=== PATIENT | male | born 1975 | race Caucasian/White ===

== ENCOUNTER 2019-11-30 14:26 | Inpatient (IN) | payer MEDICARE, OTHER ==
[~2019-11-30] VITALS: Ht 172.7 cm; Wt 116.0 kg
[2019-11-30] MEDS ORDERED: DIAZEPAM10 MG PO (15:46)
[2019-11-30] MEDS ORDERED: ZYPREXA ZYDIS20 MG SL (15:48)
[2019-11-30] MEDS ORDERED: RISPERIDONE SL (15:49)
[2019-11-30] MEDS ORDERED: CYCL10 PO (15:49)
[2019-11-30] MEDS ORDERED: HYDHCL25 PO (15:50)
[2019-11-30] MEDS ORDERED: ATOR80 PO (15:50)
[2019-11-30] MEDS ORDERED: METF500 PO (15:52)
[2019-11-30] MEDS ORDERED: Synthroid200 MCG PO (15:52)
[2019-11-30] MEDS ORDERED: GLIM4 PO (15:52)
[2019-11-30] MEDS ORDERED: Prinivil10 MG PO (15:53)
[2019-11-30] MEDS ORDERED: PIOGLITAZONE HC15 MG PO (15:55)
[2019-11-30] MEDS ORDERED: Motion Sickness25 M1 PO (17:30)
[2019-11-30] MEDS ORDERED: Divalproex Sod500 MG PO (17:30)
[2019-11-30] MEDS ORDERED: Venlafaxine HC150 MG PO (17:31)
--- NOTE | 2019-11-30 18:55 | NUR ---
Echocardiogram completed.
--- NOTE | 2019-12-01 04:20 | NUR ---
SHIFT SUMMARY ASSUMED CARE OF PT AT 1900. PT IS A/OX4, DENIES N/T IN EXTREMITES. PT SPEECH IS SLOW AND HE STATES THAT HE HAS A HUGE HEADACHE. PT HAS L SIDED WEAKNESS. PUPILS ARE UNEQUAL BUT ARE REACTIVE. HEART SOUNDS REGULAR, TELE SHOWS SINUS @ 69, DENIES CP AT THIS TIME. LUNG SOUNDS DIMINISHED, PT C/O PAIN IN HIS R LUNG WHEN HE TAKES A DEEP BREATH. PT STATES THAT HE HASNT BEEN ABLE TO WALK VERY WELL SINCE THE INCIDENT, PT/OT CONSULT ORDERED FOR THE AM. PT CAN EAT VERY WELL AND SWOLLOWS PILLS WHOLE WITH WATER. PT WAS CONTINENT T/O THE NIGHT. PT C/O 9/10 HEADACHE AT THE BEGINNING OF THE SHIFT, MEDICATED WITH TYLENOL WITHOUT RELEIF. PT STATED THAT HE TOOK THIS AT HOME BUT IT STILL NEVER HELPED. HOSPIALIST CALLED AND ULTRAM WAS ORDERED, WHEN ABOUT TO ADMINISTER MEDICATION PT WAS ASLEEP. AROUND 0330 PT AWOKE STATING HIS HEAD STILL HURT ON THE L SIDE. MEDICATED WITH NEW MEDICATION AND PT HAS BEEN SLEEPING SINCE. CALL LIGHT IN REACH, BED IN LOWEST POSTION, WILL CONTINUE TO MONITOR UNTIL DAYSHIFT NURSE ARRIVES.
[2019-12-01 05:17] LABS: BASOPHILS ABSOLUTE AUTO 0.01 K/mm3 (0.00-0.23); BASOPHILS PERCENT AUTO 0 % (0-2); EOSINOPHILS ABSOLUTE AUTO 0.01 K/mm3 (0.00-0.68); EOSINOPHILS PERCENT AUTO 0 % (0-6); Hematocrit 39.7 % (37.0-53.0); Hemoglobin 13.1 g/dL (13.5-17.5); IMMATURE GRAN ABSOLUTE AUTO 0.01 K/mm3 (0.00-0.10); IMMATURE GRAN PERCENT AUTO 0 % (0-1); LYMPHOCYTES ABSOLUTE AUTO 2.06 K/mm3 (0.84-5.20); LYMPHOCYTES PERCENT AUTO 47 % (21-46); MONOCYTES ABSOLUTE AUTO 0.43 K/mm3 (0.16-1.47); MONOCYTES PERCENT AUTO 10 % (4-13); Mean Corpuscular HGB 28.3 pg (26.0-34.0); Mean Corpuscular Volume 86 fL (80-100); Mean Platelet Volume 10.3 fL (9.1-12.4); NEUTROPHILS ABSOLUTE AUTO 1.88 K/mm3 (1.96-9.15); NEUTROPHILS PERCENT AUTO 43 % (41-73); Platelet Count 143 K/mm3 (150-400); RDW Coefficient Variation 13.2 % (11.7-14.2); RDW Standard Deviation 41.3 fL (35.1-46.3); Red Blood Cell Count 4.63 M/mm3 (4.30-5.90)
[2019-12-01 05:47] LABS: Anion Gap 8 mmol/L (6-16); Blood Urea Nitrogen 13 mg/dL (8-24); Bun/Creatinine Ratio 15.6 (12.0-20.0); CO2, Blood 24 mmol/L (21-32); Calcium, Blood 8.3 mg/dL (8.5-10.1); Chloride, Blood 106 mmol/L (98-108); Creatinine, Blood 0.83 mg/dL (0.60-1.20); Glomerular Filtration Rate >60 (60-); Glucose, Blood 109 mg/dL (70-99); Potassium, Blood 4.3 mmol/L (3.5-5.5); Sodium, Blood 138 mmol/L (136-145); Troponin I <0.015 ng/mL (0.000-0.040)
--- NOTE | 2019-12-01 17:41 | NUR ---
SHIFT SUMMARY: NO ACUTE CHANGES TO REPORT THIS SHIFT. PT A&O; CALM AND COOPERATIVE WITH CARE. MEDICATED FOR HEADACHE PAIN PER EMAR. CVA c L SIDE WEAKNESS; PT EVAL THIS SHIFT; PATIENT UP WITH 1-ASSIST & FWW/GAIT BELT TO BATHROOM. FOLLOW-UP HEAD CT THIS SHIFT; NO ACUTE CHANGES. AWAITING OT EVAL. WCTM.
[2019-12-02 05:29] LABS: BASOPHILS PERCENT AUTO 0 % (0-2); EOSINOPHILS ABSOLUTE AUTO 0.01 K/mm3 (0.00-0.68); EOSINOPHILS PERCENT AUTO 0 % (0-6); Hematocrit 38.6 % (37.0-53.0); IMMATURE GRAN ABSOLUTE AUTO 0.02 K/mm3 (0.00-0.10); IMMATURE GRAN PERCENT AUTO 1 % (0-1); LYMPHOCYTES ABSOLUTE AUTO 1.68 K/mm3 (0.84-5.20); LYMPHOCYTES PERCENT AUTO 48 % (21-46); MONOCYTES ABSOLUTE AUTO 0.28 K/mm3 (0.16-1.47); MONOCYTES PERCENT AUTO 8 % (4-13); Mean Corpuscular HGB 28.5 pg (26.0-34.0); Mean Corpuscular HGB Conc 33.7 g/dL (31.5-36.5); Mean Corpuscular Volume 85 fL (80-100); Mean Platelet Volume 10.7 fL (9.1-12.4); NEUTROPHILS ABSOLUTE AUTO 1.51 K/mm3 (1.96-9.15); NEUTROPHILS PERCENT AUTO 43 % (41-73); Platelet Count 140 K/mm3 (150-400); RDW Coefficient Variation 13.1 % (11.7-14.2); RDW Standard Deviation 40.4 fL (35.1-46.3); Red Blood Cell Count 4.56 M/mm3 (4.30-5.90)
[2019-12-02 05:55] LABS: Anion Gap 6 mmol/L (6-16); Blood Urea Nitrogen 13 mg/dL (8-24); Bun/Creatinine Ratio 15.7 (12.0-20.0); CO2, Blood 26 mmol/L (21-32); Calcium, Blood 8.1 mg/dL (8.5-10.1); Chloride, Blood 106 mmol/L (98-108); Creatinine, Blood 0.83 mg/dL (0.60-1.20); Glomerular Filtration Rate >60 (60-); Glucose, Blood 129 mg/dL (70-99); Sodium, Blood 138 mmol/L (136-145)
--- NOTE | 2019-12-02 06:09 | NUR ---
SHIFT SUMMARY PATIENT ALERT AND ORIENTED. MEDICATED PER EMAR FOR PAIN. PATIENT REPORTS FEELING PAIN IN HIS RIGHT LUNG STATING THAT "IT FEELS LIKE IT DID THE LAST TIME I HAD PNEUMONIA." LUNG SOUNDS DIMINISHED. PATIENT ABLE TO TRANSFER FROM BED TO CHAIR WITH ONE PERSON ASSIST. IV'S PATENT AND FLUSHED. BED IN LOWEST POSITION WITH WHEELS LOCKED. CALL LIGHT WITHIN REACH. REPORT GIVEN TO ONCOMING RN.
--- NOTE | 2019-12-02 18:00 | NUR ---
SHIFT SUMMARY: NO ACUTE CHANGES/EVENTS TO REPORT THIS SHIFT. PT A&O; CALM AND COOPERATIVE WITH CARE. MEDICATED FOR HEADACHE PAIN PER EMAR. PT C/O PAIN AROUND R LUNG; CXR THIS SHIFT-UNREMARKABLE; INCENTIVE SPIROMETRY STARTED THIS SHIFT. OT EVAL THIS SHIFT; RECOMMENDING HOME HEALTH @ D/C. CBGs AC/HS; NO COVERAGE REQUIRED THIS SHIFT. PT UP c 1-ASSIST c FWW & GB; WEAK GAIT, PT TIRES EASILY; UP IN CHAIR SEVERAL TIMES THIS SHIFT. WCTM.
--- NOTE | 2019-12-02 21:44 | NUR ---
PATIENT BEGAN SPEAKING IN A WAY THAT MADE THIS RN CONCERNED THAT HE COULD BE SUICIDAL. WRISTER NOTIFIED AND RISK ASSESSMENT COMPLETED. RISK ASSESSMENT CAME BACK A MODERATE RISK. WILL CONTINUE TO MONITOR.
--- NOTE | 2019-12-02 22:29 | NUR ---
AT 0 WHEN THIS RN WAS CONDUCTING THE ROUTINE SHIFT ASSESSMENT AND EVENING MEDICATION PASS ON THIS PATIENT WHEN HE STARTED CRYING ABOUT HIS CONDITION AND INDICATED THAT HE "JUST WANTED IT TO BE OVER." THIS RN BECAME CONCERNED ABOUT THE PATIENT'S MENTAL WELL BEING AND BEGAN ASKING CLARIFYING QUESTIONS ABOUT HOW HE WAS FEELING. THE PATIENT ULTIMATELY INDICATED THAT: 1. HE WISHED HE WAS BECAUSE WHAT HE WAS GOING THROUGH WAS MORE THAN HE COULD HANDLE. 2. HE WAS CONTEMPLATING MAKING A PLAN TO KILL HIMSELF BUT HAD NOT DONE SO YET. 3. HE HAS ATTEMPTED SUICIDE IN THE PAST. 4. IF HE WENT HOME IN HIS CURRENT MIND SET, HE WOULD LIKELY ATTEMPT SUICIDE.
--- NOTE | 2019-12-03 04:23 | NUR ---
SUMMARY PT REPORTED CONTINUED FU W/ PAIN 02/13. PROVIDER ORDERED FENTANYL FOR PT. PT TX W/ RELIEF. PT HAS BEEN SLEEPING WELL SINCE PAIN MANAGED. PT BREATHING EASY AND IN NO DISTRESS. CALL LIGHT IN REACH.
--- NOTE | 2019-12-03 10:49 | NUR ---
Suicide Safety plan completed. Patient denies self harm intentions. He reports he was in a lot of pain last night adn voiced he would rather be . Pt is active in mental health treatment at [facility]. He knew he has 12-05-19 1:15 tele helth appintment for his med management, He reports he has diagnoses of depressions, PTSD, psychosis--but is compliant with meds and has not had problems with psychosis or suicide ideation for years. He lives with his in newly acquired low income housing, The were homeless for 13 mon ths living in their van. he is very proud that they now have a home, bought a tv and a [employer] player. He is excited about plans for the 07 of December--"we have steaks, chips, and fireqorks; and it is just my and me". Patient given National Hotline magnet and [facility] crisis line. He was very pleasant, cooperative with future plans, and is completing the exercises he was given here for [facility]. He reports he had a stroke and could not walk as his left leg kep[t giving out. He did not go to the hospital for a day, as "they were not sure what was happening--i never had a stroke before" He was given a copy of the Plan. As he denies suicide4, the thoughts portion is not completed. He reports he also has a geriatric case manager. Lizet Zuñiga M.Ed., [facility]
--- NOTE | 2019-12-03 15:38 | NUR ---
SUICIDE ASSESSMENT: LATE ENTRY THROUGHOUT SHIFT PATIENT HAS DENIED THOUGHTS OF SUICIDE OR SELF HARM. REPORTS THAT HE FEELS SAFE IN THE HOSPITAL AND DOES NOT INTEND TO HARM HIMSELF IF DISCHARGED TODAY.
--- NOTE | 2019-12-03 19:26 | NUR ---
END OF SHIFT SUMMARY: PATIENT DENIED SUICIDAL IDEATION OR THOUGHTS OF SELF HARM THROUGHOUT THE SHIFT. PATIENT REPORTED THAT THE PAIN LAST NIGHT WAS UNBEARABLE AND HE LOST CONTROL OF HIS THOUGHTS. PATIENT IS CALM AND COOPERATIVE TODAY. PATIENT APPEARED AND STATED THAT HE FELT PHYSICALLY FATIGUED THIS MORNING. BY THE AFTERNOON, PATIENT APPEARED AND REPORTED THAT HE FELT MORE ENERGETIC. PATIENT CONTINUES TO HAVE SOME LEFT SIDED WEAKNESS. HE IS A SBA WITH THE FWW. PATIENT REPORTS THAT WITHOUT THE WALKER HE FEELS "WOBBLY". PATIENT WORKED WITH PT/OT TODAY. PATIENT REPORTS THAT THE LEFT SIDED HEADACHE PAIN IS ALSO IMPROVING. (MEDICATED PER EMAR AND PROVIDED WITH K-PAD) PATIENT REPORTED THAT HE IS ENCOURAGED BY HIS PROGRESS TODAY. PATIENT DISCUSSED DISCHARGE NEEDS. OCCUPATIONAL HEALTH RN ORDERED ENTERED AND DISCUSSED THE INFORMATION WITH JOO, METEOROLOGICAL AIDE. PATIENT WILL REQUIRE A RIDE WITH [employer] AND A STOP AT [employer], IF NEEDED, TO DIESEL SERVICE TECHNICIAN NEW PRESCRIPTIONS.
--- NOTE | 2019-12-03 19:45 | NUR ---
ASSUMED CARE; PT AOX3, HX OF BIPOLOR. REPORT LEFT SIDED HEADACHE SINCE ADMISSION. STARTS HE DOES NOT WANT WHAT HAPPENED LAST NIGHT TO OCCUR, STATES HIS HEAD WAS HURTING SO BAD THAT HE WAS IN TEARS. STATES HE IS ALREADY AT A POINT HE WANTS TO CRY. RATES PAIN 9/10. STATES IT GETS WORSE AT NIGHT. REPORTS BLURRED VISION, UNABLE TO READ THE BOARD EVEN THOUGH HE WAS ABLE TO POINT OUT THE STATEMENT FOR PAIN ON THE CORNER OF THE BOARD. BANK WORKER WEAK ON THE LEFT, BUT IT APPEARS TO ME THAT HE WAS NOT SQUEEZING ON PURPOSE. SAME WHEN DOING DORSAL FLEXION AND EXTENTION. ASKING FOR PAIN MEDS OR A CALL TO THE DOCTOR FOR SOMETHING DIFFERENT. INFORMED WILL TRY TYLENOL FIRST THEN REASSESS. HE AGREED TO THAT. HAS NOT HAD TYLNENOL SINCE AM. ENCOURAGED TO CALL, BED ALARM IS ON. CALL LIGHT IN REACH.
--- NOTE | 2019-12-03 21:20 | NUR ---
IAM REPORTS TYELNOL AND OXYCODONE IS NOT DOING ANYTHING FOR HIS PAIN. IS ASKING FOR SOMETHING ELSE. CALLED HOSPITALIST, GOT MEDICATION TIME SWITCHED TO EVERY 4 HOURS INSTEAD OF 6.
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
--- NOTE | 2019-12-03 23:01 | NUR ---
SPOKE TO MD REGARDING PATIENT REPORTING NO BM FOR 4-5 DAYS AND ASKING FOR SOMETHING. ORDER FOR COLACE AND SENNA ORDERED.
--- NOTE | 2019-12-04 04:56 | NUR ---
SHIFT SUMMARY: IAM WAS ALERT AND COOPERATIVE THIS SHIFT. REPORTED LEFT SIDED HEADACHE RUNNING 9/10 TO START. STATES MEDS ARE NOT COVERING THE PAIN FOR LONG. ATTEMPTED TYLENOL WHICH DID NOT TOUCH THE PAIN. HOSPITALIST CALLED TWICE THIS SHIFT FOR CHANGE IN HOW OFTEN PAIN MED WAS GIVEN AND FOR BOWEL CARE. GAVE OXYCODONE BEFORE BED, PATIENT HAS BEEN SLEEPING EVERY SINCE. NO SIGNS OF DISCOMFORT NOTED. TALKED ON PHONE TO SEVERAL TIMES. DOES NOT USE CALL LIGHT WHEN GETTING UP. DID STAND ON HIS OWN, AND STIFFENED UP ALMOST FALLING BACK ONTO THE BED. BED ALARM HAS BEEN ON THROUGHOUT THE SHIFT. NO OTHER CHANGES TO REPORT.
--- NOTE | 2019-12-04 05:05 | NUR ---
SQL SERVER ARCHITECT CALLED. REPORTED 13 BEAT V-TACH RUN. PATIENT SLEPT THROUGH IT. NOW BACK TO NORMAL SINUS. WILL LET DAY SHIFT KNOW. CHARGE NURSE INFORMED.
[2019-12-04 09:13] LABS: Anion Gap 10 mmol/L (6-16); Blood Urea Nitrogen 13 mg/dL (8-24); Bun/Creatinine Ratio 14.4 (12.0-20.0); CO2, Blood 24 mmol/L (21-32); Calcium, Blood 9.4 mg/dL (8.5-10.1); Chloride, Blood 104 mmol/L (98-108); Glomerular Filtration Rate >60 (60-); Glucose, Blood 162 mg/dL (70-99); Magnesium, Blood 1.9 mg/dL (1.6-2.4); Potassium, Blood 4.1 mmol/L (3.5-5.5); Sodium, Blood 138 mmol/L (136-145)
[2019-12-04] MEDS ORDERED: CLOP75 PO (11:12)
[2019-12-04] MEDS ORDERED: METO25ER PO (11:12)
[2019-12-04] MEDS ORDERED: OLANZAPINE20 MG PO (11:13)
[2019-12-04] MEDS ORDERED: OXYC5 PO (11:13)
[2019-12-04] MEDS ORDERED: TAMS.4ER PO (11:13)
--- NOTE | 2019-12-04 13:00 | NUR ---
LATE ENTRY: DISCHARGE SUMMARY: PATIENT REPORTED FEELING READY FOR DISCHARGE. PATIENT UP TO THE BATHROOM WITH FWW AND SBA. PATIENT STEADY ON FEET AND FOLLOWING CUES. STRENGTH IN LEFT EXTREMITIES WAS NEARLY EQUAL TO RIGHT. PATIENT DENIED ANY CP, SOB, OR NUMBNESS/TINGLING IN UPPER EXTREMITIES. PATIENT DISCHARGE MEDICATIONS FAXED TO PREFERRED PHARMACY. DISCHARGE TRANSPORTATION ARRANGED BY CARE MANAGEMENT (INCLUDING A STOP AT PHARMACY). DISCHARGE INSTRUCTIONS AND INFORMATION PROVIDED TO THE PATIENT. PATIENT REPORTS THAT HE ALREADY HAS A FOLLOW-UP APPOINTMENT WITH A NEW PROVIDER. ALL QUESTIONS AND CONCERNS ADDRESSED. PATIENT DISCHARGED WITH TEST CLERK IN WHEELCHAIR TO MEET [facility]. PATIENT STABLE AT TIME OF DISCHARGE.
== END 2019-12-04 13:02 | disposition home or self-care (01) | DRG 65 ==
LOC: ER 14:26 → MEDS 14:27
PROVIDERS: Internal Medicine; ADMIT Internal Medicine
DX: I63.9 Cerebral infarction, unspecified (principal); G81.94 Hemiplegia, unspecified affecting left nondominant side; F33.3 Major depressive disorder, recurrent, severe with psychotic symptoms; E03.9 Hypothyroidism, unspecified; E11.9 Type 2 diabetes mellitus without complications; I10 Essential (primary) hypertension; F17.220 Nicotine dependence, chewing tobacco, uncomplicated; Z95.0 Presence of cardiac pacemaker
CPT/HCPCS: 36415; 70450; 71046; 80048; 82947; 83735; 84484; 85025; 85651; 93005; 93010; 93306; 93880; 96372; 96374; 97110; 97116; 97162; 97166; 97530; 97535; 99285-25; A9270; A9270-GY; G0378; J1170; J1650; J3010